=== PATIENT | female | born 1955 | race Caucasian/White ===

== ENCOUNTER 2017-04-16 10:40 | Day surgery (SDC) | payer OTHER ==
[2017-04-16] MEDS ORDERED: fentaNYL 100 MCG/2 ML INJ ONE (12:19)
[2017-04-16] MEDS ORDERED: MIDAZOLAM 2 MG/2 ML VIAL ONE (12:19)
[2017-04-16] MEDS ORDERED: IOPAMIDOL (ISOVUE-300) 100 ML BTL ONE (13:01)
[2017-04-16] MEDS ORDERED: ONDANSETRON 4 MG/2 ML VIAL IVP PRN (13:55)
[2017-04-16] MEDS ORDERED: ONDANSETRON DISINTEGRATING 4 MG TAB PO PRN (13:55)
== END 2017-04-16 16:30 | disposition home or self-care (01) ==
LOC: FIMAGING 10:40
PROVIDERS: ATTEND Neurological Surgery
PROC: 03H Upper Arteries, Insertion (ICD-10-PCS; principal; 2017-04-16)
PROC: 03H Upper Arteries, Insertion (ICD-10-PCS; principal; 2017-04-16)
PROC: 03H Upper Arteries, Insertion (ICD-10-PCS; principal; 2017-04-16)
PROC: 03H Upper Arteries, Insertion (ICD-10-PCS; principal; 2017-04-16)
DX: I67.1 Cerebral aneurysm, nonruptured (principal)
CPT/HCPCS: 36224; 36226; 99152; 99153; C1769; C1894; J1644; J2250; J3010; Q9967

== ENCOUNTER 2017-06-25 13:00 | Inpatient (IN) | payer OTHER ==
[2017-07-02] MEDS ORDERED: NS 1,000 ML IV SCH (12:15)
[2017-07-02] MEDS ORDERED: IOPAMIDOL (ISOVUE-300) 100 ML BTL ONE ×2 (13:20→15:11)
[2017-07-02] MEDS ORDERED: MIDAZOLAM 2 MG/2 ML VIAL IVP ONE (13:23)
--- NOTE | 2017-07-02 13:23 | PDANEPAE ---
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 ANE Past Medical History - Cardiovascular History Hx Hypertension: Yes Hx Arrhythmias: No Hx Chest Pain: No Hx Coronary Artery / Peripheral Vascular Disease: No Hx CHF / Valvular Disease: No Hx Palpitations: Yes - Pulmonary History Hx COPD: No Hx Asthma/Reactive Airway Disease: No Hx Recent Upper Respiratory Infection: No Hx Oxygen in Use at Home: No Hx Sleep Apnea: No - Neurologic History Hx Cerebrovascular Accident: No Hx Seizures: No Hx Dementia: No - Endocrine History Hx Diabetes: No Endocrine History Comment: As per patient, 'Steroid induced diabetes' - Renal History Hx Renal Disorders: No - Liver History Hx Hepatic Disorders: No - Neurological & Psychiatric Hx Hx Neurological and Psychiatric Disorders: No - Cancer History Hx Cancer: No - Congenital Disorder History Hx Congenital Disorders: No - GI History Hx Gastrointestinal Disorders: Yes Gastrointestinal History Comment: ulceritive colitis x 30 years. Colon removal 2016 - Other Health History Other Health History: bilateral hip and shoulder problems followed by caren waldrop - Chronic Pain History Chronic Pain: No - Surgical History Prior Surgeries: tonsillectomy-1967. tubal ligation-1979. hysterectomy-1982. appendectomy-1967. 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 laproscopic ovary removal-2015. removal of colon and anus with illeostomy-2015. lumpectomy. bilateral eye cataract surgery ANE Review of Systems Review of systems is: negative Review of Systems: - Exercise capacity Exercise capacity: >=4 METS METS (RN): 4 METS ANE Patient History - Allergies Allergies/Adverse Reactions: acetaminophen [From Percocet] Allergy (Intermediate, Verified 06/26/17 15:13) Rash codeine Allergy (Intermediate, Verified 06/26/17 15:13) Rash infliximab [From Remicade] Allergy (Intermediate, Verified 06/26/17 15:13) Rash oxycodone Allergy (Intermediate, Verified 06/26/17 15:13) Rash Penicillins Allergy (Unknown, Verified 06/26/17 15:13) Unknown - Home Medications Home Medications: Adderall 10 mg Tablet 10 mg PO PRN 03/30/17 [Last Taken Unknown] Ambien 10 mg PO DAILY 03/30/17 [Last Taken 03/30/17] Iron 325 mg PO DAILY 03/30/17 [Last Taken 03/30/17] Levothyroxine 25 mcg PO DAILY 03/30/17 [Last Taken 03/30/17] Vitamin D3 3,000 units PO DAILY 03/30/17 [Last Taken 03/30/17] Aspirin 325 mg (*) 325 mg PO DAILY 06/26/17 [Last Taken Unknown] Estradiol 0.5 mg PO DAILY 06/26/17 [Last Taken Unknown] HCTZ (*) 25 mg PO DAILY 06/26/17 [Last Taken Unknown] Plavix 75 mg PO DAILY 06/26/17 [Last Taken Unknown] - NPO status NPO Status: no food or drink >8 hours - Anes Hx Anes Hx: no prior problems - Smoking Hx Smoking Status: Former smoker - Alcohol Use Alcohol Use: Occasionally (7/wk) - Family Anes Hx Family Hx Anesthesia Complications: None ANE Labs/Vital Signs - Vital Signs Vital Signs: reviewed preoperatively; see RN documention for details Height: 165.1 cm Weight: 70.307 kg ANE Physical Exam - Airway Mallampati Score: Class 2 Mouth exam: normal dental/mouth exam - Pulmonary Pulmonary: no respiratory distress - Cardiovascular Cardiovascular: regular rate and rhythym - ASA Status ASA Status: II ANE Anesthesia Plan Anesthesia Plan: general endotracheal anesthesia
[2017-07-02] MEDS ORDERED: PROPOFOL 200 MG/20 ML VIAL ONE (13:27)
[2017-07-02] MEDS ORDERED: ROCURONIUM 100 MG/10 ML VIAL ONE (13:27)
[2017-07-02] MEDS ORDERED: fentaNYL 100 MCG/2 ML INJ ONE ×2 (13:27→15:29)
[2017-07-02] MEDS ORDERED: LIDOCAINE 2% 5 ML SDV ONE (13:27)
[2017-07-02] MEDS ORDERED: DEXAMETHASONE 4 MG/ML VIAL ONE (13:58)
[2017-07-02] MEDS ORDERED: HEPARIN 10,000 UNIT/10 ML MDV ONE (14:05)
[2017-07-02] MEDS ORDERED: SUGAMMADEX SODIUM 200 MG/2 ML VIAL IVP ONE (15:16)
[2017-07-02] MEDS ORDERED: ONDANSETRON 4 MG/2 ML VIAL ONE (15:20)
[2017-07-02] MEDS ORDERED: ONDANSETRON 4 MG/2 ML VIAL IVP PRN (16:51)
[2017-07-02] MEDS ORDERED: OXYCODONE/APAP 5/325 TAB PO PRN (16:51)
--- NOTE | 2017-07-03 07:52 | NEUSURGPN ---
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 POD#1 Plan: -ASA 81mg daily and Plavix 75mg daily - continue for 6 months -Diet as tolerated -SBP goal is normotensive -No hematoma at r groin -Up and ambulatory -DC to home today -D/w Dr Martinez Subjective: Pt resting in bed, feels good, wishes to go home today Objective: AAOx3 NAD VSS CN II-XII grossly intact MAEx4 R groin w/o hematoma colostomy bag Urinary Catheter in Place: No - Physician Discussed Patient with : Michelle Neurosurgery Physical Exam - Vitals, I&O, Labs I and O 07/02/17 07/03/17 07/04/17 05:59 05:59 05:59 Intake Total 1175 Output Total 350 Balance 825 Weight 70.307 kg Intake: Oral (ml) 650 IV Infused (ml) 525 Ns 1,000 ml @ 100 mls/hr 525 IV CONT LOPEZ Rx#: [id number] Output: Urine (ml) 350 Catheter 350 Other: Output Comment Toilet Stool from colostomy. Number of Voids Toilet 2 Number of Stools Toilet 2 Vital Signs Temp Pulse Resp BP Pulse Ox 36.4 C 67 14 120/69 96 07/02/17 19:00 07/03/17 06:00 07/03/17 06:00 07/03/17 06:00 07/03/17 06:00 ICD10 Worksheet Patient Problems: Problems Problem Status Onset Brain aneurysm Acute - ICD10 Problem Qualifiers (1) Brain aneurysm
[2017-07-03] MEDS ORDERED: LEVOTHYROXINE 25 MCG TAB PO SCH (08:15)
[2017-07-03 08:18] VITALS: O2SAT 99
[2017-07-03 08:19] VITALS: BP 122/64; PULSE 65; RESP 19; TEMP 98.1
[2017-07-03] MEDS ORDERED: FERROUS SULFATE 325 MG TAB PO SCH (09:00)
[2017-07-03] MEDS ORDERED: CLOPIDOGREL BISULFATE 75 MG TAB PO SCH (09:00)
[2017-07-03] MEDS ORDERED: HYDROCHLOROTHIAZIDE 25 MG TAB PO SCH (09:00)
[2017-07-03] MEDS ORDERED: ESTRADIOL 0.5 MG TAB PO SCH (09:00)
[2017-07-03] MEDS ORDERED: ASPIRIN 81 MG CHEWABLE TAB PO SCH (09:00)
[2017-07-04] MEDS ORDERED: LEVOTHYROXINE 25 MCG TAB PO SCH (06:00)
== END 2017-07-03 09:57 | disposition home or self-care (01) | DRG 272 ==
LOC: F2N 07-02 11:38
PROVIDERS: ADMIT Neurological Surgery; ATTEND Neurological Surgery
PROC: B31R1ZZ Fluoroscopy of Intracranial Arteries using Low Osmolar Contrast (ICD-10-PCS; principal; 2017-07-02)
PROC: B31F1ZZ Fluoroscopy of Left Vertebral Artery using Low Osmolar Contrast (ICD-10-PCS; principal; 2017-07-02)
PROC: 03LG3DZ Occlusion of Intracranial Artery with Intraluminal Device, Percutaneous Approach (ICD-10-PCS; principal; 2017-07-02)
DX: I72.5 Aneurysm of other precerebral arteries (principal); I10 Essential (primary) hypertension
CPT/HCPCS: C1769; C1887; C1894; J1100; J1644; J2405; J2704; J3010; Q9967